=== PATIENT | male | born 1950 | race Hispanic/Latino ===

== ENCOUNTER 2017-05-29 08:29 | Inpatient (IN) | payer MEDICARE, MEDICAID ==
[2017-05-25 11:59] VITALS: BMI 22.2
[2017-05-29 09:03] LABS: BASO # 0.03 K/mm3 (0.0-2.0); BASO % 0.4 % (0.0-3.0); EOS # 0.4 (0.0-0.7); EOS % 5.6 % (1.5-5.0); GRAN # 2.77 (1.4-6.5); GRAN % 39.6 % (50.0-68.0); HEMATOCRIT 37.7 % (42.0-52.0); MEAN CELL VOLUME 96.7 fl (80.0-105.0); MEAN CORPUSCULAR HEMOGLOBIN 33.8 pg (25.0-35.0); MEAN PLATELET VOLUME 9.9 fl (7.0-11.0); MONO # 0.8 (0.1-0.6); MONO % 11.4 % (1.0-6.0); RED CELL DISTRIBUTION WIDTH 14.4 % (11.5-14.5)
[2017-05-29 09:12] LABS: CALCIUM 9.3 mg/dL (8.4-10.5); POTASSIUM 4.4 mmol/L (3.6-5.0)
[2017-05-29 09:17] LABS: INR 1.03 (0.93-1.08)
[2017-05-29] MEDS ORDERED: Nitroglycerin 50mg in D5W 50 MG/250 ML BOTTLE IV ONE (11:13)
[2017-05-29] MEDS ORDERED: Iodixanol 320 MG/ML 100 ML BOTTLE IV ONE (11:13)
[2017-05-29] MEDS ORDERED: Iodixanol 320 MG/ML 200 ML BOTTLE IV ONE ×2 (11:13→12:13)
[2017-05-29] MEDS ORDERED: Lidocaine 2% Inj (20ml) ONE (11:13)
[2017-05-29] MEDS ORDERED: Midazolam 2 MG/2 ML VIAL ONE ×3 (11:43→13:31)
[2017-05-29] MEDS ORDERED: Oxycodone/Acetaminophen 5/325 mg Tab PO PRN (15:06)
[2017-05-29] MEDS ORDERED: Oxycodone/Acetaminophen 5/325 mg Tab ONE (15:59)
[2017-05-29] MEDS ORDERED: Oxycodone/Acetaminophen 5/325 mg Tab PO ONE (16:00)
[2017-05-29] MEDS ORDERED: Morphine 2 mg/ml ISec ONE (16:39)
[2017-05-29] MEDS ORDERED: Morphine 4 mg/ml ISec IVP ONE (16:40)
[2017-05-29 17:15] LABS: BASO # 0.02 K/mm3 (0.0-2.0); BASO % 0.1 % (0.0-3.0); EOS # 0.2 (0.0-0.7); EOS % 1.2 % (1.5-5.0); GRAN # 10.73 (1.4-6.5); GRAN % 70.1 % (50.0-68.0); HEMATOCRIT 34.4 % (42.0-52.0); LYMPH # 3.4 (1.2-3.4); LYMPH % 22.3 % (22.0-35.0); MEAN CELL VOLUME 96.1 fl (80.0-105.0); MEAN CORPUSCULAR HEMOGLOBIN 33.8 pg (25.0-35.0); MEAN CORPUSCULAR HGB CONC 35.2 g/dl (31.0-37.0); MEAN PLATELET VOLUME 10.3 fl (7.0-11.0); MONO % 6.3 % (1.0-6.0); RED CELL DISTRIBUTION WIDTH 14.3 % (11.5-14.5); WHITE BLOOD COUNT 15.3 10^3/ul (4.5-11.0)
[2017-05-29] MEDS ORDERED: Morphine 4 mg/ml ISec IVP STA (17:41)
[2017-05-29 18:31] LABS: ALB/GLOB RATIO 1.4 (1.1-1.8); ALKALINE PHOSPHATASE 47 U/L (38-126); ALT/SGPT 28 U/L (7-56); AST/SGOT 30 U/L (17-59); BILIRUBIN,TOTAL 0.8 mg/dL (0.2-1.3); BLOOD UREA NITROGEN 22 mg/dL (7-21); CALCIUM 8.5 mg/dL (8.4-10.5); CARBON DIOXIDE 20 mmol/L (21-33); CHLORIDE 102 mmol/L (98-107); GFR AFRICAN-AMERICAN > 60; GLUCOSE,RANDOM 100 mg/dL (70-110); POTASSIUM 4.3 mmol/L (3.6-5.0); SODIUM 134 mmol/L (132-148); TOTAL PROTEIN 6.2 g/dL (5.8-8.3)
--- NOTE | 2017-05-29 18:41 | CP.CCUPN ---
CCU Subjective - Physician Review Events Since Last Encounter (Free Text): 05/29/17 18:31 67 y/o M who presented to the ICU after an interventional procedure and stent placement in the femoral artery. R axillary artery entrance was noted to have large hematoma and pressure/ parathesia noted 1 hr after in PACU. In the pacu his movement and parathesia improved. Being brought over to the ICu for further monitoring. CCU Objective - Vital Signs / Intake & Output Vital Signs (Last 4 hours): Vital Signs Temp Pulse Resp BP 05/29/17 17:00 97.7 F 91 H 24 05/29/17 16:30 97.7 F 97 H 24 153/115 H 05/29/17 16:00 97.7 F 97 H 12 05/29/17 15:45 97.7 F 97 H 12 147/77 05/29/17 15:30 97.7 F 85 14 145/80 05/29/17 15:15 97.7 F 84 14 143/82 05/29/17 15:00 97.7 F 80 19 135/107 H - Physical Exam Head: Positive for: Normocephalic Pupils: Positive for: PERRL Extroacular Muscles: Positive for: EOMI Conjunctiva: Positive for: Normal Mouth: Positive for: Moist Mucous Membranes Pharnyx: Positive for: Normal Nose (Internal): Positive for: Normal Inspection Neck: Positive for: Normal Range of Motion Respiratory/Chest: Positive for: Clear to Auscultation Cardiovascular: Positive for: Regular Rate and Rhythm Upper Extremity: Positive for: Swelling, Other (r axilary area, noted with hematoma and pain. ) Lower Extremity: Positive for: Normal Inspection Neurological: Positive for: GCS=15 - Medications Active Medications: Active Medications Generic Name Dose Route Start Last Admin Trade Name Freq PRN Reason Stop Dose Admin Acetaminophen 650 mg 05/29/17 15:07 Tylenol 325mg Tab PO Q4H PRN Pain, Mild (1-3) Aspirin 81 mg 05/30/17 10:00 Ecotrin PO DAILY JESSICA Fenofibrate 145 mg 05/30/17 10:00 Tricor PO DAILY JESSICA Gabapentin 300 mg 05/29/17 22:00 Neurontin PO HS JESSICA Protocol Sodium Chloride 1,000 mls @ 80 mls/hr 05/29/17 15:15 Sodium Chloride 0.45% IV .[id number] JESSICA Losartan Potassium 25 mg 05/30/17 10:00 Cozaar PO DAILY JESSICA Ondansetron HCl 4 mg 05/29/17 15:06 Zofran Inj IVP ONCE PRN Nausea/Vomiting Oxycodone/Acetaminophen 1 tab 05/29/17 15:06 Percocet 5/325 Mg Tab PO 06/01/17 15:07 Q4H PRN Pain, moderate (4-7) - Patient Studies Lab Studies: Lab Studies 05/29/17 05/29/17 05/29/17 Range/Units 17:00 17:00 17:00 WBC 15.3 H D (4.5-11.0) 10^3/ul RBC 3.58 (3.5-6.1) 10^6/uL Hgb 12.1 L (14.0-18.0) g/dL Hct 34.4 L (42.0-52.0) % MCV 96.1 (80.0-105.0) fl MCH 33.8 (25.0-35.0) pg MCHC 35.2 (31.0-37.0) g/dl RDW 14.3 (11.5-14.5) % Plt Count 219 (120.0-450.0) 10^3/uL MPV 10.3 (7.0-11.0) fl Gran % 70.1 H (50.0-68.0) % Lymph % (Auto) 22.3 (22.0-35.0) % Frederick % (Auto) 6.3 H (1.0-6.0) % Eos % (Auto) 1.2 L (1.5-5.0) % Baso % (Auto) 0.1 (0.0-3.0) % Gran # 10.73 H (1.4-6.5) Lymph # 3.4 (1.2-3.4) Frederick # 1.0 H (0.1-0.6) Eos # 0.2 (0.0-0.7) Baso # 0.02 (0.0-2.0) K/mm3 PT (9.9-11.8) Seconds INR (0.93-1.08) APTT 77.7 H* (23.7-30.8) Seconds Sodium (132-148) mmol/L Potassium (3.6-5.0) mmol/L Chloride (98-107) mmol/L Carbon Dioxide (21-33) mmol/L Anion Gap (10-20) BUN (7-21) mg/dL Creatinine (0.8-1.5) mg/dL Est GFR ( Amer) Est GFR (Non-Af Amer) Random Glucose (70-110) mg/dL Calcium (8.4-10.5) mg/dL Blood Type AB NEGATIVE Antibody Screen Negative BBK History Checked Patient has bt 05/29/17 05/29/17 05/29/17 Range/Units 08:45 08:45 08:45 WBC 7.0 (4.5-11.0) 10^3/ul RBC 3.90 (3.5-6.1) 10^6/uL Hgb 13.2 L (14.0-18.0) g/dL Hct 37.7 L (42.0-52.0) % MCV 96.7 (80.0-105.0) fl MCH 33.8 (25.0-35.0) pg MCHC 35.0 (31.0-37.0) g/dl RDW 14.4 (11.5-14.5) % Plt Count 209 (120.0-450.0) 10^3/uL MPV 9.9 (7.0-11.0) fl Gran % 39.6 L (50.0-68.0) % Lymph % (Auto) 43.0 H (22.0-35.0) % Frederick % (Auto) 11.4 H (1.0-6.0) % Eos % (Auto) 5.6 H (1.5-5.0) % Baso % (Auto) 0.4 (0.0-3.0) % Gran # 2.77 (1.4-6.5) Lymph # 3.0 (1.2-3.4) Frederick # 0.8 H (0.1-0.6) Eos # 0.4 (0.0-0.7) Baso # 0.03 (0.0-2.0) K/mm3 PT 11.1 (9.9-11.8) Seconds INR 1.03 (0.93-1.08) APTT 28.0 (23.7-30.8) Seconds Sodium 136 (132-148) mmol/L Potassium 4.4 (3.6-5.0) mmol/L Chloride 101 (98-107) mmol/L Carbon Dioxide 25 (21-33) mmol/L Anion Gap 14 (10-20) BUN 26 H (7-21) mg/dL Creatinine 1.5 (0.8-1.5) mg/dL Est GFR ( Amer) 57 Est GFR (Non-Af Amer) 47 Random Glucose 84 (70-110) mg/dL Calcium 9.3 (8.4-10.5) mg/dL Blood Type Antibody Screen BBK History Checked Laboratory Results - last 24 hr 05/29/17 05/29/17 05/29/17 08:45 08:45 08:45 WBC 7.0 RBC 3.90 Hgb 13.2 L Hct 37.7 L MCV 96.7 MCH 33.8 MCHC 35.0 RDW 14.4 Plt Count 209 MPV 9.9 Gran % 39.6 L Lymph % (Auto) 43.0 H Frederick % (Auto) 11.4 H Eos % (Auto) 5.6 H Baso % (Auto) 0.4 Gran # 2.77 Lymph # 3.0 Frederick # 0.8 H Eos # 0.4 Baso # 0.03 PT 11.1 INR 1.03 APTT 28.0 Sodium 136 Potassium 4.4 Chloride 101 Carbon Dioxide 25 Anion Gap 14 BUN 26 H Creatinine 1.5 Est GFR ( Amer) 57 Est GFR (Non-Af Amer) 47 Random Glucose 84 Calcium 9.3 Blood Type Antibody Screen BBK History Checked 05/29/17 05/29/17 05/29/17 17:00 17:00 17:00 WBC 15.3 H D RBC 3.58 Hgb 12.1 L Hct 34.4 L MCV 96.1 MCH 33.8 MCHC 35.2 RDW 14.3 Plt Count 219 MPV 10.3 Gran % 70.1 H Lymph % (Auto) 22.3 Frederick % (Auto) 6.3 H Eos % (Auto) 1.2 L Baso % (Auto) 0.1 Gran # 10.73 H Lymph # 3.4 Frederick # 1.0 H Eos # 0.2 Baso # 0.02 PT INR APTT 77.7 H* Sodium Potassium Chloride Carbon Dioxide Anion Gap BUN Creatinine Est GFR ( Amer) Est GFR (Non-Af Amer) Random Glucose Calcium Blood Type AB NEGATIVE Antibody Screen Negative BBK History Checked Patient has bt Review of Systems - EENT Eyes: As Per HPI Ears: As Per HPI - Cardiovascular Cardiovascular: UNREMARKABLE - Respiratory Respiratory: UNREMARKABLE - Gastrointestinal Gastrointestinal: UNREMARKABLE - Genitourinary Genitourinary: UNREMARKABLE - Musculoskeletal Musculoskeletal: Myalgias, Stiffness, Tingling - Neurological Neurological: UNREMARKABLE - Psychiatric Psychiatric: UNREMARKABLE Critical Care Progress Note - Ventilator Checklist Daily Assessment of Readiness to Wean: Yes Daily Spontaneous Breathing Trial: Yes PUD Prophalyxis: Yes DVT Prophylaxis: Yes Oral Care with Chlorhexidine Gluconate {CHG}: Yes - Nutrition Nutrition: Nutrition Category Date Time Status Heart Healthy Diet [DIET] Diets 05/29/17 Dinner Ordered Assessment/Plan - Assessment and Plan (Free Text) Assessment: 67 y/o M with PVD , outpatient for angioplasty for illiac stent with SFA opening. R axilary approach . Post op found to have large hematoma with brachial plexus impingement. Bleeding stopped. Coags and cbc to be checked. Site check q 1hr. Currently noted to have adventist on feeling and movement. Keep HGB> 7 , INR< 2 , Platelets> 20 K Q6hrs labs. Monitor overnight. L leg intact without numbness or weakness. Pulses intact. cc time 45 min
[2017-05-29] MEDS ORDERED: Morphine 2 mg/ml ISec IVP PRN (19:36)
[2017-05-29] MEDS: Sodium Chloride 0.45% 1,000 ML IV SCH (19:47)
[2017-05-29] MEDS: Morphine 4 mg/ml ISec IVP PRN ×2 (19:55→20:34)
--- NOTE | 2017-05-29 20:18 | VASCULAR ---
PROCEDURE: 1. Abdominal aortogram and bilateral lower extremity runoff with left selective views. 2. Left SFA angioplasty and stent placement with attempted atherectomy. HISTORY: Severe peripheral vascular disease. These kissing iliac stents. Previous left SFA recanalization. Foot ischemia with rest pain. Previous left toe amputations. PHYSICIAN(S): Steve Hernandez M.D. TECHNIQUE: The relative risks and indications of the procedure were explained to the patient and his daughter and consent obtained. The patient was hydrated prior to the procedure and the appropriate labs drawn. The patient was placed supine on the arteriogram table and the right axilla prepped and draped in the usual sterile fashion. Conscious sedation and monitoring were provided throughout the procedure by a nurse. Under direct ultrasound guidance, the right axillary artery was punctured with a micropuncture set. a 5 Lithuanian sheath was placed in the right axilla. Through the sheath and over a guidewire, a 5 Lithuanian flush catheter was placed in the abdominal aorta at the level of the renal arteries and a PA DSA abdominal aortogram performed. The catheter was advanced to the aortic bifurcation and bilateral oblique DSA pelvic arteriograms performed. Overlapping bilateral lower extremity DSA arteriograms were obtained from the inguinal ligaments to the ankles. A 5 Lithuanian catheter and angled Glidewire were negotiated into the iliac kissing stents. The catheter was in 7 Lithuanian 70 cm sheath was placed in the left iliac artery. The occluded left SFA was crossed with a 5 Lithuanian catheter and angled Glidewire. Exchange is made for a 0.014 support wire. The silver Hawk catheter would not reach the occluded left SFA. A jet stream catheter was advanced the origin of the left SFA but would not advance further. Subsequently the occluded left SFA and stents were dilated with a 6 mm sheath. 7 mm x 4 cm stent was placed the origin of the left SFA. 6 mm x 8 cm stent was placed in the mid left SFA. A 6 mm by 150 mm drug-eluting balloon was used in the distal left SFA. Completion angiograms were obtained. The sheath was removed and hemostasis obtained at the right axillary puncture site with a Mynx device. FINDINGS: There are single renal arteries bilaterally which are widely patent and normal in appearance. The nephrograms are symmetric in appearance. The infrarenal abdominal aorta is patent with widely patent kissing self expanding stents placed at the aortic bifurcation. Both stents are widely patent. The left internal iliac artery is occluded. The right internal iliac artery is patent. The external iliac arteries are patent.. Right lower extremity: The right common femoral artery is patent. The right profunda femoral artery is patent. There is a 10-12 cm occlusion of the proximal right SFA. The distal right SFA is reconstituted and patent. The right popliteal artery is patent and continuous. The right trifurcation is intact. There is 3 vessel runoff on the right with small calcified vessels. Left lower extremity: Left common femoral artery is patent. The left profunda femoral artery is hypertrophied. The left superficial femoral artery is occluded at its origin. 2 stents are seen in the mid left SFA. There is reconstitution of the terminal left SFA. The left popliteal artery is continuous. There is 2 vessel runoff via the left posterior tibial and peroneal arteries. The left anterior tibial artery is severely diseased. IMPRESSION: 1.Successful recanalization of the long segment left SFA occlusion and stents as described above. 2. Patent kissing common iliac artery stents. 3. 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
[2017-05-29] MEDS: HYDROmorphone 2 mg/ml ISec IVP PRN (21:00)
[2017-05-29] MEDS ORDERED: Lidocaine 2% Inj (20ml) IJ STA (22:30)
--- NOTE | 2017-05-29 23:13 | CP.PCM.PN ---
Subjective - Date & Time of Evaluation Date of Evaluation: 05/29/17 Time of Evaluation: 23:06 - Subjective Subjective: Patient's right arm circumference was measured at 15.5" at the start of shift. In ~4 hours, arm circumference increased to 17.5" An ice pack was placed under patient's right axilla RUE compartment pressure was tested using [place] needle 2% lidocaine was injected Pressure was measured: 15-20mmHg Patient tolerated procedure with no complications Will continue to monitor patient closely Discussed with attending Dr. Lakisha Troy [email or web address] Objective - Vital Signs/Intake and Output Vital Signs (last 24 hours): Temp Pulse Resp BP Pulse Ox 99.4 F 98 H 17 125/74 98 05/29/17 21:28 05/29/17 21:28 05/29/17 21:28 05/29/17 21:28 05/29/17 21:00 - Medications Medications: Current Medications Acetaminophen (Tylenol 325mg Tab) 650 mg PO Q4H PRN PRN Reason: Pain, Mild (1-3) Aspirin (Ecotrin) 81 mg PO DAILY JESSICA Fenofibrate (Tricor) 145 mg PO DAILY JESSICA Gabapentin (Neurontin) 300 mg PO HS JESSICA PRN Reason: Protocol Last Admin: 05/29/17 21:51 Dose: 300 mg Hydromorphone HCl (Dilaudid) 2 mg IVP Q6H PRN PRN Reason: Pain, severe (8-10) Last Admin: 05/29/17 21:00 Dose: 2 mg Sodium Chloride (Sodium Chloride 0.45%) 1,000 mls @ 80 mls/hr IV .[id number] [facility] Last Admin: 05/29/17 19:47 Dose: 80 mls/hr Losartan Potassium (Cozaar) 25 mg PO DAILY [facility] Morphine Sulfate (Morphine) 2 mg IVP Q3H PRN PRN Reason: Pain, severe (8-10) Last Admin: 05/29/17 20:34 Dose: 2 mg Ondansetron HCl (Zofran Inj) 4 mg IVP ONCE PRN PRN Reason: Nausea/Vomiting Oxycodone/Acetaminophen (Percocet 5/325 Mg Tab) 1 tab PO Q4H PRN PRN Reason: Pain, moderate (4-7) Stop: 06/01/17 15:07 - Labs Labs: 05/29/17 17:00 05/29/17 18:14 PT 11.1 Seconds (9.9-11.8) 05/29/17 08:45 INR 1.03 (0.93-1.08) 05/29/17 08:45 APTT 77.7 Seconds (23.7-30.8) H* 05/29/17 17:00
[2017-05-29 23:47] LABS: BASO # 0.01 K/mm3 (0.0-2.0); BASO % 0.1 % (0.0-3.0); GRAN # 14.47 (1.4-6.5); GRAN % 89.2 % (50.0-68.0); HEMATOCRIT 35.5 % (42.0-52.0); LYMPH % 6.4 % (22.0-35.0); MEAN CELL VOLUME 97.5 fl (80.0-105.0); MEAN CORPUSCULAR HEMOGLOBIN 34.3 pg (25.0-35.0); MEAN CORPUSCULAR HGB CONC 35.2 g/dl (31.0-37.0); MEAN PLATELET VOLUME 9.9 fl (7.0-11.0); MONO # 0.7 (0.1-0.6); MONO % 4.3 % (1.0-6.0); RED CELL DISTRIBUTION WIDTH 14.4 % (11.5-14.5); WHITE BLOOD COUNT 16.2 10^3/ul (4.5-11.0)
[2017-05-29 23:53] LABS: INR 1.07 (0.93-1.08); PARTIAL THROMBOPLASTIN TIME 26.6 Seconds (23.7-30.8)
[2017-05-30] MEDS: HYDROmorphone 2 mg/ml ISec IVP PRN ×3 (03:15→20:54)
[2017-05-30 03:23] LABS: INR 1.05 (0.93-1.08); PARTIAL THROMBOPLASTIN TIME 26.4 Seconds (23.7-30.8)
[2017-05-30 07:17] LABS: INR 1.03 (0.93-1.08); PARTIAL THROMBOPLASTIN TIME 25.8 Seconds (23.7-30.8)
[2017-05-30 07:35] LABS: ALB/GLOB RATIO 1.4 (1.1-1.8); BILIRUBIN,TOTAL 0.6 mg/dL (0.2-1.3); CALCIUM 8.1 mg/dL (8.4-10.5); MAGNESIUM 1.6 mg/dL (1.7-2.2); PHOSPHOROUS 6.3 mg/dL (2.5-4.5); POTASSIUM 4.8 mmol/L (3.6-5.0)
[2017-05-30 07:50] LABS: TROPONIN I 0.15 ng/mL
[2017-05-30] MEDS: Morphine 4 mg/ml ISec IVP PRN ×2 (07:52→14:07)
[2017-05-30] MEDS ORDERED: Sodium Chloride 0.9% 1,000 ML IV STA ×2 (08:10→10:33)
[2017-05-30] MEDS: Sodium Chloride 0.45% 1,000 ML IV SCH (08:26)
[2017-05-30 10:43] LABS: INR 1.07 (0.93-1.08); PARTIAL THROMBOPLASTIN TIME 26.1 Seconds (23.7-30.8)
[2017-05-30 10:44] LABS: ALB/GLOB RATIO 1.4 (1.1-1.8); BILIRUBIN,TOTAL 0.5 mg/dL (0.2-1.3); CALCIUM 7.6 mg/dL (8.4-10.5); POTASSIUM 4.9 mmol/L (3.6-5.0); TOTAL PROTEIN 5.7 g/dL (5.8-8.3)
--- NOTE | 2017-05-30 14:58 | CP.CCUPN ---
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 Baso % (Auto) 0.1 Gran # 14.47 H Lymph # 1.0 L Grayson # 0.7 H Eos # 0.0 Baso # 0.01 PT INR APTT Sodium 134 Potassium 4.3 Chloride 102 Carbon Dioxide 20 L Anion Gap 16 BUN 22 H Creatinine 1.3 Est GFR ( Amer) > 60 Est GFR (Non-Af Amer) 55 Random Glucose 100 Calcium 8.5 Phosphorus Magnesium Total Bilirubin 0.8 AST 30 ALT 28 Alkaline Phosphatase 47 Troponin I 0.03 Total Protein 6.2 Albumin 3.6 Globulin 2.6 Albumin/Globulin Ratio 1.4 Blood Type Antibody Screen BBK History Checked 05/29/17 05/30/17 05/30/17 23:30 02:45 06:45 WBC RBC Hgb Hct MCV MCH MCHC RDW Plt Count MPV Gran % Lymph % (Auto) Grayson % (Auto) Eos % (Auto) Baso % (Auto) Gran # Lymph # Grayson # Eos # Baso # PT 11.6 11.3 INR 1.07 1.05 APTT 26.6 26.4 Sodium 134 Potassium 4.8 Chloride 99 Carbon Dioxide 20 L Anion Gap 20 BUN 31 H Creatinine 2.6 H Est GFR ( Amer) 30 Est GFR (Non-Af Amer) 25 Random Glucose 117 H Calcium 8.1 L Phosphorus 6.3 H Magnesium 1.6 L Total Bilirubin 0.6 AST 36 ALT 31 Alkaline Phosphatase 42 Troponin I 0.15 H* D Total Protein 6.0 Albumin 3.5 Globulin 2.5 Albumin/Globulin Ratio 1.4 Blood Type Antibody Screen BBK History Checked 05/30/17 05/30/17 05/30/17 06:45 10:25 10:25 WBC RBC Hgb Hct MCV MCH MCHC RDW Plt Count MPV Gran % Lymph % (Auto) Grayson % (Auto) Eos % (Auto) Baso % (Auto) Gran # Lymph # Grayson # Eos # Baso # PT 11.1 11.6 INR 1.03 1.07 APTT 25.8 26.1 Sodium 132 Potassium 4.9 Chloride 100 Carbon Dioxide 18 L Anion Gap 19 BUN 33 H Creatinine 2.7 H Est GFR ( Amer) 29 Est GFR (Non-Af Amer) 24 Random Glucose 120 H Calcium 7.6 L Phosphorus Magnesium Total Bilirubin 0.5 AST 28 ALT 29 Alkaline Phosphatase 38 Troponin I Total Protein 5.7 L Albumin 3.3 Globulin 2.4 Albumin/Globulin Ratio 1.4 Blood Type Antibody Screen BBK History Checked 05/30/17 05/30/17 15:27 15:27 WBC RBC Hgb Hct MCV MCH MCHC RDW Plt Count MPV Gran % Lymph % (Auto) Grayson % (Auto) Eos % (Auto) Baso % (Auto) Gran # Lymph # Grayson # Eos # Baso # PT 11.4 INR 1.06 APTT 27.3 Sodium 132 Potassium 4.8 Chloride 100 Carbon Dioxide 22 Anion Gap 15 BUN 39 H Creatinine 3.2 H Est GFR ( Amer) 24 Est GFR (Non-Af Amer) 20 Random Glucose 126 H Calcium 7.3 L Phosphorus Magnesium Total Bilirubin 0.4 AST 29 ALT 24 Alkaline Phosphatase 36 L Troponin I 0.29 H* D Total Protein 5.3 L Albumin 3.0 Globulin 2.2 Albumin/Globulin Ratio 1.4 Blood Type Antibody Screen BBK History Checked Critical Care Progress Note - Nutrition Nutrition: Nutrition Category Date Time Status Heart Healthy Diet [DIET] Diets 05/29/17 Dinner Ordered Attending/Attestation - Attestation I have personally seen and examined this patient.: Yes I have fully participated in the care of the patient.: Yes I have reviewed all pertinent clinical information: Yes Notes (Text): 05/30/17 16:37 67 y/o M monitored overnight due to concern for worsening R arm swelling/ hematoma expansion. Numbness and motor loss improved and patient is doing well. No complaints. HGB stable. Edema increased w/ increasing arm size. COncern for compartment syndrome is things worsen. Increased CR, contrast given post cath 24 hrs prior. Hydration started w/ Normal saline. PT /ot cc time 45 min
[2017-05-30] MEDS ORDERED: Albuterol-Ipratrop 3 mg / 0.5 (3 ml) UD IH STA (15:08)
[2017-05-30 15:39] LABS: ALB/GLOB RATIO 1.4 (1.1-1.8); BILIRUBIN,TOTAL 0.4 mg/dL (0.2-1.3); CALCIUM 7.3 mg/dL (8.4-10.5); POTASSIUM 4.8 mmol/L (3.6-5.0); TOTAL PROTEIN 5.3 g/dL (5.8-8.3)
[2017-05-30 15:52] LABS: INR 1.06 (0.93-1.08); PARTIAL THROMBOPLASTIN TIME 27.3 Seconds (23.7-30.8)
[2017-05-30 15:53] LABS: TROPONIN I 0.29 ng/mL
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
[2017-05-30] MEDS ORDERED: Magnesium Sulfate 2 GM in Sodium Chloride 0.9% 100 ML IVPB ONE (17:21)
[2017-05-30 19:44] LABS: ALB/GLOB RATIO 1.5 (1.1-1.8); BILIRUBIN,TOTAL 0.4 mg/dL (0.2-1.3); CALCIUM 7.8 mg/dL (8.4-10.5); POTASSIUM 4.8 mmol/L (3.6-5.0); TOTAL PROTEIN 5.5 g/dL (5.8-8.3)
[2017-05-30 19:46] LABS: INR 1.04 (0.93-1.08); PARTIAL THROMBOPLASTIN TIME 26.4 Seconds (23.7-30.8)
[2017-05-30 22:52] LABS: ALB/GLOB RATIO 1.4 (1.1-1.8); BILIRUBIN,TOTAL 0.4 mg/dL (0.2-1.3); CALCIUM 7.6 mg/dL (8.4-10.5); PARTIAL THROMBOPLASTIN TIME 26.5 Seconds (23.7-30.8); POTASSIUM 4.7 mmol/L (3.6-5.0); TOTAL PROTEIN 5.2 g/dL (5.8-8.3)
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
[2017-05-31 01:49] LABS: ALB/GLOB RATIO 1.4 (1.1-1.8); BILIRUBIN,TOTAL 0.4 mg/dL (0.2-1.3); CALCIUM 7.8 mg/dL (8.4-10.5); TOTAL PROTEIN 5.5 g/dL (5.8-8.3)
[2017-05-31 07:30] LABS: ALB/GLOB RATIO 1.3 (1.1-1.8); BILIRUBIN,TOTAL 0.4 mg/dL (0.2-1.3); CALCIUM 7.7 mg/dL (8.4-10.5); POTASSIUM 4.7 mmol/L (3.6-5.0); TOTAL PROTEIN 5.5 g/dL (5.8-8.3)
[2017-05-31 09:16] LABS: ALB/GLOB RATIO 1.3 (1.1-1.8); BILIRUBIN,TOTAL 0.4 mg/dL (0.2-1.3); CALCIUM 7.6 mg/dL (8.4-10.5); POTASSIUM 4.7 mmol/L (3.6-5.0); TOTAL PROTEIN 5.3 g/dL (5.8-8.3)
[2017-05-31] MEDS: Azithromycin 500MG/NS 250ml 500 MG/250 ML BAG IVPB SCH (11:53)
[2017-05-31] MEDS: Sodium Chloride 0.9% 1,000 ML IV SCH ×2 (11:54→22:32)
[2017-05-31 13:16] LABS: TROPONIN I 0.15 ng/mL
[2017-05-31] MEDS: cefTRIAXone 1 gm 1 GM/100 ML BAG IVPB SCH (14:01)
[2017-05-31 14:32] LABS: URINE BILIRUBIN NEGATIVE (NEGATIVE); URINE BLOOD LARGE (NEGATIVE); URINE GLUCOSE (UA) NEGATIVE (NEGATIVE); URINE KETONE NEGATIVE (NEGATIVE); URINE LEUKOCYTE ESTERASE TRACE Leu/uL (NEGATIVE); URINE PROTEIN NEGATIVE mg/dL (<30 mg/dL); URINE UROBILINOGEN 0.2 E.U./dL (<1 E.U./dL)
[2017-05-31 14:33] LABS: URINE APPEARANCE CLEAR (CLEAR); URINE COLOR YELLOW (YELLOW)
[2017-05-31 14:40] LABS: URINE RBC 25 - 30 /hpf (0-2); URINE WBC 0 - 2 /hpf (0-6)
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
[2017-05-31 14:41] LABS: URINE RED BLOOD CELL CAST 0 - 2 /hpf
--- NOTE | 2017-05-31 15:26 | RAD ---
HISTORY: persistent nausea, multiple emesis, no flatus/BM COMPARISON: No prior. FINDINGS: BOWEL: Unremarkable bowel gas pattern. No evidence of bowel obstruction. No masses or abnormal calcifications. There are bilateral iliac vascular stents. There is a left femoral vascular stent. BONES: Normal. OTHER FINDINGS: None. IMPRESSION: No evidence of bowel obstruction.
[2017-05-31 15:45] LABS: GRAN # 13.52 (1.4-6.5); GRAN % 84.7 % (50.0-68.0); HEMATOCRIT 26.8 % (42.0-52.0); LYMPH # 1.2 (1.2-3.4); LYMPH % 7.5 % (22.0-35.0); MEAN CELL VOLUME 96.4 fl (80.0-105.0); MEAN CORPUSCULAR HEMOGLOBIN 33.5 pg (25.0-35.0); MEAN CORPUSCULAR HGB CONC 34.7 g/dl (31.0-37.0); MEAN PLATELET VOLUME 10.1 fl (7.0-11.0); MONO # 1.2 (0.1-0.6); MONO % 7.8 % (1.0-6.0); RED CELL DISTRIBUTION WIDTH 14.7 % (11.5-14.5)
--- NOTE | 2017-05-31 17:34 | CARD ---
APPROVED REPORT EKG Measurement Heart [id number] <Conclusion> Sinus tachycardia with occasional and consecutive premature ventricular complexes and fusion complexes Low voltage QRS Septal infarct, age undetermined Inferior infarct, age undetermined Abnormal ECG
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
[2017-06-01 06:39] LABS: BASO # 0.01 K/mm3 (0.0-2.0); BASO % 0.1 % (0.0-3.0); EOS % 0.2 % (1.5-5.0); GRAN # 7.34 (1.4-6.5); GRAN % 75.9 % (50.0-68.0); HEMATOCRIT 24.8 % (42.0-52.0); LYMPH # 1.3 (1.2-3.4); LYMPH % 13.7 % (22.0-35.0); MEAN CELL VOLUME 97.3 fl (80.0-105.0); MEAN CORPUSCULAR HEMOGLOBIN 33.7 pg (25.0-35.0); MEAN CORPUSCULAR HGB CONC 34.7 g/dl (31.0-37.0); MONO % 10.1 % (1.0-6.0); RED CELL DISTRIBUTION WIDTH 15.2 % (11.5-14.5); WHITE BLOOD COUNT 9.7 10^3/ul (4.5-11.0)
[2017-06-01 07:25] LABS: ALB/GLOB RATIO 1.1 (1.1-1.8); BILIRUBIN,TOTAL 0.4 mg/dL (0.2-1.3); CALCIUM 7.6 mg/dL (8.4-10.5); MAGNESIUM 2.5 mg/dL (1.7-2.2); PHOSPHOROUS 2.7 mg/dL (2.5-4.5); POTASSIUM 4.4 mmol/L (3.6-5.0); TOTAL PROTEIN 5.1 g/dL (5.8-8.3)
[2017-06-01] MEDS: cefTRIAXone 1 gm 1 GM/100 ML BAG IVPB SCH (09:49)
[2017-06-01] MEDS: Azithromycin 500MG/NS 250ml 500 MG/250 ML BAG IVPB SCH (09:49)
[2017-06-01] MEDS: Sodium Chloride 0.9% 1,000 ML IV SCH (09:50)
[2017-06-01] MEDS ORDERED: Sodium Chloride 0.9% 1,000 ML IV SCH (10:50)
--- NOTE | 2017-06-01 17:17 | PN ---
DATE: 06/01/2017 SUBJECTIVE: The patient is seen in the ICU. He is lying in bed. He is awake, he is alert. He is complaining of some nausea. He is complaining of pain in his right upper arm. He denies any pain in his left lower extremity. He denies any chest tightness. Denies any palpitations. PHYSICAL EXAMINATION GENERAL: Elderly male lying in bed, in mild respiratory distress. VITAL SIGNS: Blood pressure 98/50, heart rate 95, respiratory rate 18, temperature 98.3. HEENT: Normocephalic, atraumatic. NECK: Supple, no JVD. LUNGS: Bilateral equal entry, distant breath sounds, bilateral rhonchi, no rales. CARDIAC: S1 and S2, regular rate and rhythm, no murmur, no rub. ABDOMEN: Obese, distended, soft, nontender, bowel sounds present. EXTREMITIES: Large hematoma in right upper arm, some oozing of blood, ecchymosis. Lower extremities: Trace lower extremity edema. No clubbing, no cyanosis. INTAKE AND OUTPUT: 2450/1750. LABORATORY DATA: WBC 9.7, hemoglobin 8.6, hematocrit 25, platelets 180. Sodium 139, potassium 4.4, chloride 109, CO2 of 22, BUN 44, creatinine 2.1, glucose 91, calcium 7.6, phosphorus 2.7, magnesium 2.5, albumin 2.7, corrected calcium is 8.5, globulin 2.4. Urine eosinophils negative. Urinalysis: Large blood, leukocyte esterase trace, specific gravity 1.020, complements normal. Cultures negative. CURRENT MEDICATIONS: Dilaudid, Ecotrin, morphine, Rocephin 1 g daily, TriCor Tylenol, Zithromax, Zofran. ASSESSMENT: 1. Acute kidney injury superimposed on chronic kidney disease stage II. 2. Contrast induced acute tubular necrosis. 3. Severe peripheral vascular disease. 4. Right arm hematoma. 5. Anemia secondary to blood loss. 6. Hypertension. 7. Chronic obstructive pulmonary disease. 8. Long-term smoking. PLAN: 1. Acute kidney injury is resolving. 2. Discontinue IV fluids after this bag of fluids. 3. Monitor H and H closely. 4. May need blood transfusion. 5. Continue respiratory treatments. 6. Avoid nephrotoxins. 7. Avoid hypotension. 8. Continue empiric antibiotics. Case is discussed with ICU resident and ICU attending. Case is discussed with the patient at bedside. Case is discussed with primary nurse. More than 35 minutes was spent in the care of this critically ill patient. Tamiko Chamberlain MD
--- NOTE | 2017-06-01 18:31 | PN ---
DATE: SUBJECTIVE: The patient was transferred to telemetry. He denies chest pain. He is still experiencing right arm numbness. He denies any leg pain. PHYSICAL EXAMINATION: VITAL SIGNS: Blood pressure 123/67, heart rate 95, temperature 98.5. HEENT: Pale conjunctivae. CHEST: Clear. HEART: S1 and S2 regular. ABDOMEN: Soft. LABORATORY DATA: Hemoglobin and hematocrit 8.6 and 24.8, white count 9.7, platelet count 180,000. Today's BUN and creatinine have significantly improved to 44 and 2.1 respectively. Abdomen x-ray, no evidence of bowel obstruction. ASSESSMENT: 1. Borderline troponin elevation. 2. Improved renal insufficiency. 3. Peripheral vascular disease status post recently percutaneous transluminal angioplasty and stent to the left superficial femoral artery via right axillary approach. 4. Recent right axillary hematoma. RECOMMENDATIONS: Continue aspirin 81 mg once a day, IV Rocephin at 1 g daily, TriCor at 145 mg once a day, Zithromax 500 mg intravenously daily. Echocardiogram study is still pending and I recommended ventilation perfusion scan. The patient is not suitable candidate for invasive cardiac workup. Armando Burgos MD
[2017-06-02 07:27] LABS: BASO # 0.01 K/mm3 (0.0-2.0); BASO % 0.2 % (0.0-3.0); EOS # 0.1 (0.0-0.7); EOS % 0.8 % (1.5-5.0); GRAN # 3.82 (1.4-6.5); GRAN % 63.3 % (50.0-68.0); LYMPH # 1.4 (1.2-3.4); LYMPH % 22.9 % (22.0-35.0); MEAN CELL VOLUME 97.4 fl (80.0-105.0); MEAN CORPUSCULAR HEMOGLOBIN 33.6 pg (25.0-35.0); MEAN CORPUSCULAR HGB CONC 34.5 g/dl (31.0-37.0); MEAN PLATELET VOLUME 10.2 fl (7.0-11.0); MONO # 0.8 (0.1-0.6); MONO % 12.8 % (1.0-6.0); RED CELL DISTRIBUTION WIDTH 15.6 % (11.5-14.5)
[2017-06-02 07:43] LABS: ALB/GLOB RATIO 1.2 (1.1-1.8); ALKALINE PHOSPHATASE 38 U/L (38-126); ALT/SGPT 43 U/L (7-56); AST/SGOT 40 U/L (17-59); BILIRUBIN,TOTAL 0.6 mg/dL (0.2-1.3); BLOOD UREA NITROGEN 29 mg/dL (7-21); CARBON DIOXIDE 24 mmol/L (21-33); CHLORIDE 114 mmol/L (95-110); GFR AFRICAN-AMERICAN > 60; GLUCOSE,RANDOM 96 mg/dL (70-110); MAGNESIUM 2.5 mg/dL (1.7-2.2); PHOSPHOROUS 1.8 mg/dL (2.5-4.5); SODIUM 144 mmol/L (132-148); TOTAL PROTEIN 4.8 g/dL (5.8-8.3)
[2017-06-02 08:06] LABS: HEMATOCRIT 22.3 % (42.0-52.0)
[2017-06-02 08:49] LABS: HEMATOCRIT 23.4 % (42.0-52.0)
[2017-06-02] MEDS: cefTRIAXone 1 gm 1 GM/100 ML BAG IVPB SCH (09:03)
[2017-06-02] MEDS: Azithromycin 500MG/NS 250ml 500 MG/250 ML BAG IVPB SCH (10:10)
[2017-06-03 06:55] LABS: BASO # 0.02 K/mm3 (0.0-2.0); BASO % 0.3 % (0.0-3.0); EOS # 0.1 (0.0-0.7); EOS % 1.2 % (1.5-5.0); GRAN # 4.03 (1.4-6.5); GRAN % 58.6 % (50.0-68.0); LYMPH # 1.9 (1.2-3.4); LYMPH % 27.5 % (22.0-35.0); MEAN CELL VOLUME 98.3 fl (80.0-105.0); MEAN CORPUSCULAR HEMOGLOBIN 33.6 pg (25.0-35.0); MEAN CORPUSCULAR HGB CONC 34.2 g/dl (31.0-37.0); MEAN PLATELET VOLUME 9.8 fl (7.0-11.0); MONO # 0.9 (0.1-0.6); MONO % 12.4 % (1.0-6.0); RED CELL DISTRIBUTION WIDTH 15.7 % (11.5-14.5); WHITE BLOOD COUNT 6.9 10^3/ul (4.5-11.0)
[2017-06-03 07:18] LABS: ALB/GLOB RATIO 1.2 (1.1-1.8); ALKALINE PHOSPHATASE 46 U/L (38-126); ALT/SGPT 45 U/L (7-56); AST/SGOT 43 U/L (17-59); BILIRUBIN,TOTAL 0.6 mg/dL (0.2-1.3); BLOOD UREA NITROGEN 25 mg/dL (7-21); CALCIUM 8.3 mg/dL (8.4-10.5); CARBON DIOXIDE 28 mmol/L (21-33); CHLORIDE 112 mmol/L (98-107); GFR AFRICAN-AMERICAN > 60; GLUCOSE,RANDOM 105 mg/dL (70-110); MAGNESIUM 2.4 mg/dL (1.7-2.2); PHOSPHOROUS 1.6 mg/dL (2.5-4.5); POTASSIUM 4.1 mmol/L (3.6-5.0); SODIUM 146 mmol/L (132-148); TOTAL PROTEIN 5.2 g/dL (5.8-8.3)
[2017-06-03 07:28] LABS: HEMATOCRIT 23.7 % (42.0-52.0)
[2017-06-03] MEDS: cefTRIAXone 1 gm 1 GM/100 ML BAG IVPB SCH (10:02)
[2017-06-03] MEDS: Azithromycin 500MG/NS 250ml 500 MG/250 ML BAG IVPB SCH (11:06)
[2017-06-03 13:18] LABS: IRON 88 ug/dL (45-180)
--- NOTE | 2017-06-03 14:50 | PN ---
DATE: 06/02/2017 SUBJECTIVE: The patient is seen lying in bed. He is awake, he is alert, he is comfortable. He still has some cough. Pain in the right arm has much reduced. Pain in the left leg is better. PHYSICAL EXAMINATION: GENERAL EXAMINATION: Elderly male, lying in bed. VITAL SIGNS: Blood pressure 149/71, heart rate 88, respiratory rate 18 to 20 and temperature 98.2. HEENT: Normocephalic, atraumatic, positive pallor. NECK: Supple. No JVD. LUNGS: Bilateral equal air entry. No rales. CARDIAC: S1 and S2, regular rate and rhythm. No murmur. No rub. ABDOMEN: Obese, distended, soft, nontender, bowel sounds present. EXTREMITIES: Large hematoma in right upper extremity, slightly reduced in size. No lower extremity edema. INTAKE AND OUTPUT: 300/1300. LABORATORY DATA: WBC 6.0, hemoglobin 7.7, hematocrit 22 and platelets 194. Sodium 144, potassium 4.0, chloride 105, CO2 of 24, BUN 29, creatinine 1.2, glucose 96, calcium 8.0, phosphorus 1.8 and magnesium 2.5. Albumin 2.6. MEDICATIONS: Aspirin, Rocephin, TriCor, Tylenol, Zithromax and Zofran. ASSESSMENT: 1. Resolving acute kidney injury. 2. Severe anemia. 3. Status post acute tubular necrosis. 4. Status post angiogram. 5. Hypertension. 6. Atherosclerotic disease. 7. Hyperlipidemia. PLAN: 1. Repeat hemoglobin, if less than 8 transfuse 2 units of PRBCs. 2. Avoid nephrotoxins. 3. Push p.o. fluids. 4. Continue empiric antibiotics as per ID recommendations. Tamiko Chamberlain MD
[2017-06-03] MEDS: Oxycodone/Acetaminophen 5/325 mg Tab PO PRN ×2 (15:32→22:58)
[2017-06-03] MEDS: Potassium & Sodium Phosphate PO SCH (17:45)
--- NOTE | 2017-06-04 00:17 | PN ---
DATE: 06/03/2017 SUBJECTIVE: The patient is seen sitting in bed. He is awake, he is alert. Family members are at bedside. He denies any pain. He denies any shortness of breath. He denies any abdominal pain. He denies any nausea, vomiting. His right arm pain is much better. PHYSICAL EXAMINATION GENERAL: Elderly male sitting in bed. VITAL SIGNS: Blood pressure 148/93, heart rate 77, respiratory rate 18-20 and temperature 98. HEENT: Normocephalic, atraumatic, positive pallor. NECK: Supple, no JVD. LUNGS: Bilateral equal air entry, distant breath sounds, no rales. CARDIAC: S1 and S2, regular rate and rhythm, no murmur, no rub. ABDOMEN: Obese, distended, soft, nontender, bowel sounds present. EXTREMITIES: No lower extremity edema. LABORATORY DATA: WBC 6.9, hemoglobin 8.1, hematocrit 24 and platelets 220. Sodium 146, potassium 4.1, chloride 112, CO2 of 28, BUN 25, creatinine 1.2, glucose 105, calcium 8.3, phosphorus 1.6 magnesium 2.4, iron saturation of 49, iron 88 and ferritin 278. MEDICATIONS: Ecotrin, Neutra-Phos, Rocephin, TriCor, Tylenol, Z-Jonathan and Zofran. ASSESSMENT: 1. Resolved acute kidney injury. 2. Acute tubular necrosis secondary to contrast exposure. 3. Peripheral arterial disease. 4. Status post angiogram complicated by right arm hematoma. 5. Hypertension. 6. Chronic obstructive pulmonary disease. PLAN 1. Replace phosphorus. 2. Push p.o. intake. 3. Monitor H&H. 4. Continue antihypertensives. 5. No objection to discharge tomorrow Tamiko Chamberlain MD
[2017-06-04 00:55] VITALS: RESP 20
[2017-06-04 06:20] VITALS: O2SAT 94
[2017-06-04 06:48] LABS: BASO # 0.03 K/mm3 (0.0-2.0); BASO % 0.4 % (0.0-3.0); EOS # 0.4 (0.0-0.7); EOS % 4.7 % (1.5-5.0); GRAN # 4.4 (1.4-6.5); GRAN % 58.5 % (50.0-68.0); HEMATOCRIT 24.7 % (42.0-52.0); LYMPH % 26.8 % (22.0-35.0); MEAN CELL VOLUME 99.6 fl (80.0-105.0); MEAN CORPUSCULAR HEMOGLOBIN 33.5 pg (25.0-35.0); MEAN CORPUSCULAR HGB CONC 33.6 g/dl (31.0-37.0); MEAN PLATELET VOLUME 9.5 fl (7.0-11.0); MONO # 0.7 (0.1-0.6); MONO % 9.6 % (1.0-6.0); RED CELL DISTRIBUTION WIDTH 15.9 % (11.5-14.5); WHITE BLOOD COUNT 7.5 10^3/ul (4.5-11.0)
[2017-06-04 07:17] LABS: ALB/GLOB RATIO 1.2 (1.1-1.8); ALKALINE PHOSPHATASE 44 U/L (38-126); ALT/SGPT 50 U/L (7-56); AST/SGOT 48 U/L (17-59); BILIRUBIN,TOTAL 0.8 mg/dL (0.2-1.3); BLOOD UREA NITROGEN 24 mg/dL (7-21); CALCIUM 8.4 mg/dL (8.4-10.5); CARBON DIOXIDE 31 mmol/L (21-33); CHLORIDE 110 mmol/L (98-107); GFR AFRICAN-AMERICAN > 60; GLUCOSE,RANDOM 88 mg/dL (70-110); MAGNESIUM 2.2 mg/dL (1.7-2.2); PHOSPHOROUS 1.9 mg/dL (2.5-4.5); POTASSIUM 3.9 mmol/L (3.6-5.0); SODIUM 144 mmol/L (132-148); TOTAL PROTEIN 5.1 g/dL (5.8-8.3)
[2017-06-04] MEDS: cefTRIAXone 1 gm 1 GM/100 ML BAG IVPB SCH (09:46)
[2017-06-04] MEDS: Potassium & Sodium Phosphate PO SCH (09:47)
[2017-06-04] MEDS: Azithromycin 500MG/NS 250ml 500 MG/250 ML BAG IVPB SCH (11:35)
[2017-06-04 12:13] VITALS: BP 145/51; TEMP 97.2
--- NOTE | 2017-06-04 12:57 | PN ---
SUBJECTIVE: The patient denies chest pain or shortness of breath. PHYSICAL EXAMINATION: VITAL SIGNS: Blood pressure /76, heart rate 61, temperature 98.3 and respirations 20. HEENT: Pale conjunctivae. CHEST: Clear. HEART: S1 and S2 regular. EXTREMITIES: Significant right arm edema and axillary ecchymosis. LABORATORY DATA: Hemoglobin and hematocrit 8.3 and 24.7, white count and platelet count are within normal limit. Today's BUN and creatinine are 24 and 1.1 respectively. Phosphorus is below normal at 1.9. ASSESSMENT: 1. Borderline troponin elevation. 2. Improving renal insufficiency. 3. Status post coronary angioplasty and stenting through the left superficial femoral artery. 4. Right axillary hematoma with residual edema. RECOMMENDATIONS: I did recommend to the nursing staff to remove the IV access from the right arm, to the left arm. Continue current aspirin, IV Rocephin, TriCor and IV Zithromax. Consider venous Doppler of the right upper extremity. Armando Burgos MD
[2017-06-04 16:08] VITALS: PULSE 116
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
== END 2017-06-04 17:01 | DRG 907 ==
LOC: SDSVAS 08:29 → CCU 18:18 → SDSVAS 05-30 12:00 → CCU 05-30 12:00 → 2RNO 06-01 11:13
PROVIDERS: ADMIT Radiology Vascular & Interventional Radiology; ATTEND Radiology Vascular & Interventional Radiology
PROC: 047L3DZ Dilation of Left Femoral Artery with Intraluminal Device, Percutaneous Approach (ICD-10-PCS; principal; 2017-05-29)
DX: I97.638 Postprocedural hematoma of a circulatory system organ or structure following other circulatory system procedure (principal); N17.0 Acute kidney failure with tubular necrosis; J18.9 Pneumonia, unspecified organism; N14.1 Nephropathy induced by other drugs, medicaments and biological substances; T50.8X5A Adverse effect of diagnostic agents, initial encounter; N99.0 Postprocedural (acute) (chronic) kidney failure; I70.222 Atherosclerosis of native arteries of extremities with rest pain, left leg; J44.9 Chronic obstructive pulmonary disease, unspecified; I12.9 Hypertensive chronic kidney disease with stage 1 through stage 4 chronic kidney disease, or unspecified chronic kidney disease; N18.2 Chronic kidney disease, stage 2 (mild); E78.5 Hyperlipidemia, unspecified; D50.0 Iron deficiency anemia secondary to blood loss (chronic); Y83.8 Other surgical procedures as the cause of abnormal reaction of the patient, or of later complication, without mention of misadventure at the time of the procedure; Z87.891 Personal history of nicotine dependence

== ENCOUNTER 2017-06-04 17:07 | Inpatient (IN) | payer OTHER, MEDICAID ==
[2017-06-04] MEDS ORDERED: Oxycodone/Acetaminophen 5/325 mg Tab PO PRN (19:03)
[2017-06-04 20:04] VITALS: BMI 26.5
[2017-06-04] MEDS ORDERED: Influenza Vaccine 60 mcg/0.5 mL SYR (4YR UP) IM ONE (20:04)
[2017-06-04] MEDS ORDERED: Pneumococcal 23-Valent Vaccine IM ONE (20:04)
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
[2017-06-05] MEDS: Pantoprazole 40 mg EC Tab PO SCH (06:40)
[2017-06-05 08:08] LABS: BASO # 0.04 K/mm3 (0.0-2.0); BASO % 0.4 % (0.0-3.0); EOS # 0.4 (0.0-0.7); EOS % 4.3 % (1.5-5.0); GRAN # 5.84 (1.4-6.5); GRAN % 63.1 % (50.0-68.0); HEMATOCRIT 27.2 % (42.0-52.0); LYMPH % 21.7 % (22.0-35.0); MEAN CORPUSCULAR HEMOGLOBIN 34.2 pg (25.0-35.0); MEAN CORPUSCULAR HGB CONC 34.2 g/dl (31.0-37.0); MEAN PLATELET VOLUME 9.5 fl (7.0-11.0); MONO % 10.5 % (1.0-6.0); RED CELL DISTRIBUTION WIDTH 16.1 % (11.5-14.5); WHITE BLOOD COUNT 9.3 10^3/ul (4.5-11.0)
[2017-06-05 08:20] LABS: ALB/GLOB RATIO 1.3 (1.1-1.8); ALKALINE PHOSPHATASE 52 U/L (38-126); ALT/SGPT 74 U/L (7-56); AST/SGOT 48 U/L (17-59); BILIRUBIN,TOTAL 1.1 mg/dL (0.2-1.3); BLOOD UREA NITROGEN 23 mg/dL (7-21); CALCIUM 8.7 mg/dL (8.4-10.5); CARBON DIOXIDE 28 mmol/L (21-33); CHLORIDE 106 mmol/L (98-107); GFR AFRICAN-AMERICAN > 60; GLUCOSE,RANDOM 93 mg/dL (70-110); MAGNESIUM 1.9 mg/dL (1.7-2.2); PHOSPHOROUS 2.1 mg/dL (2.5-4.5); POTASSIUM 3.8 mmol/L (3.6-5.0); SODIUM 141 mmol/L (132-148); TOTAL PROTEIN 5.7 g/dL (5.8-8.3)
[2017-06-05] MEDS ORDERED: Potassium & Sodium Phosphate PO SCH (10:00)
[2017-06-05] MEDS: FENOFIBRATE 150 MG PO SCH (14:53)
--- NOTE | 2017-06-05 18:13 | PN ---
DATE: SUBJECTIVE: The patient is currently seen lying comfortable supine in bed in the TCU. He appears to be in no distress. His BUN and creatinine have returned to baseline levels. MEDICATIONS: Medication list reviewed. The patient is currently on ergocalciferol, Ecotrin, fenofibrate, Percocet p.r.n., Protonix, Tylenol p.r.n., vitamin C, and Zofran p.r.n. OBJECTIVE VITAL SIGNS: Blood pressure ranging from 122-155 systolic, diastolic 60-99. Temperature 98.4, respiratory rate 18 with a pulse of 85. HEENT: Shows him to be normocephalic, atraumatic. Conjunctivae are pale. Sclerae are nonicteric. NECK: Supple. No neck vein distention. CHEST: Clear to auscultation and percussion. No rales, rhonchi, or wheezing. CARDIOVASCULAR: Shows irregular rate and rhythm without murmurs, rubs or gallops. ABDOMEN: Soft. Nondistended. Bowel sounds normal. No rebound or guarding. No masses. EXTREMITIES: Show resolving hematoma, ecchymosis right upper extremity. No lower extremity edema. No cyanosis or clubbing. LABORATORY DATA AND IMAGING: CBC today white blood cell count 9.2 with hemoglobin of 9.3, platelet count is 262,000. Chemistry showed normal electrolytes. BUN down to 23 from a maximum of 55. Creatinine is down to 1.1 from a maximum of 4. His baseline BUN is less than 20 with a baseline creatinine of less than 1.0. Calcium is 8.7. Phosphorus level remains low at 2.1. Magnesium level is 1.9. Mild elevation of his liver enzyme; ALT is 74. Albumin is 3.2. ASSESSMENT: 1. Status post acute renal failure. Secondary to contrast induced nephrotoxicity. With time and hydration, his BUN and creatinine are returning back to normal. 2. Mild hypophosphatemia. We will continue the patient on phosphorus supplements. He had been receiving Neutra-Phos. 3. Mild anemia. This appears to be stable. 4. History of hypertension. Blood pressure control appears to be variable. The patient had been on valsartan in the outpatient setting with improvement in his renal parameters. I will restart the patient on valsartan. 5. History of chronic obstructive pulmonary disease, currently stable. 6. The patient is deconditioned. We will continue rehabilitation in the TCU. PLAN: 1. Continue rehabilitation in the TCU as noted above. 2. We will restart the patient back on blood pressure medication. He had been on valsartan in the outpatient setting. If the patient is unable to obtain this as I do not believe this medication is on formulated dose that he is taking, perhaps we will switch the patient to a formulary designated angiotensin receptor tom. 3. I will supplement the patient with Neutra-Phos. He had been on this in the past. Phosphorus level remains low at 2.1. 4. Continue to monitor labs on a periodic basis in the TCU. Guy Keith MD
[2017-06-05] MEDS: Potassium & Sodium Phosphate PO SCH (18:56)
[2017-06-06 07:56] LABS: MEAN CELL VOLUME 100.3 fl (80.0-105.0); MEAN CORPUSCULAR HEMOGLOBIN 33.4 pg (25.0-35.0); MEAN CORPUSCULAR HGB CONC 33.3 g/dl (31.0-37.0); MEAN PLATELET VOLUME 9.7 fl (7.0-11.0); RED CELL DISTRIBUTION WIDTH 16.4 % (11.5-14.5); WHITE BLOOD COUNT 9.5 10^3/ul (4.5-11.0)
[2017-06-06 08:14] LABS: ALB/GLOB RATIO 1.4 (1.1-1.8); ALKALINE PHOSPHATASE 62 U/L (38-126); ALT/SGPT 80 U/L (7-56); AST/SGOT 52 U/L (17-59); BILIRUBIN,TOTAL 1.6 mg/dL (0.2-1.3); BLOOD UREA NITROGEN 25 mg/dL (7-21); CALCIUM 8.9 mg/dL (8.4-10.5); CARBON DIOXIDE 28 mmol/L (21-33); CHLORIDE 104 mmol/L (95-110); GFR AFRICAN-AMERICAN > 60; GLUCOSE,RANDOM 92 mg/dL (70-110); MAGNESIUM 1.9 mg/dL (1.7-2.2); PHOSPHOROUS 2.6 mg/dL (2.5-4.5); POTASSIUM 3.9 mmol/L (3.6-5.0); SODIUM 140 mmol/L (132-148); TOTAL PROTEIN 6.3 g/dL (5.8-8.3)
[2017-06-06] MEDS: Pantoprazole 40 mg EC Tab PO SCH (08:30)
[2017-06-06] MEDS: FENOFIBRATE 150 MG PO SCH (10:43)
[2017-06-06] MEDS: Potassium & Sodium Phosphate PO SCH ×2 (10:43→17:59)
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
--- NOTE | 2017-06-06 19:44 | US ---
PROCEDURE: Right upper extremity venous US CLINICAL HISTORY: Arm pain and swelling Evaluate for deep venous thrombosis. PHYSICIAN(S): Steve Hernandez M.D FINDINGS: The visualized rightinternal jugular vein is sonographically normal and compressible. No evidence of obstruction or thrombus is seen. The visualized segments of the right subclavian vein are patent with normal waveforms. No sonographic evidence of obstruction or thrombosis is seen. The visualized deep venous system of the proximal right upper extremity is sonographically normal and compressible. There is a 1.8 x 5.7 cm heterogeneous collection in the right axilla, consistent with a hematoma. IMPRESSION: 1. No sonographic evidence for deep venous thrombosis in the visualized segments of the right upper extremity. 2. 0.8 x 5.7 cm right axillary hematoma
[2017-06-07 07:52] LABS: HEMATOCRIT 26.9 % (42.0-52.0); MEAN CELL VOLUME 99.6 fl (80.0-105.0); MEAN CORPUSCULAR HEMOGLOBIN 34.4 pg (25.0-35.0); MEAN CORPUSCULAR HGB CONC 34.6 g/dl (31.0-37.0); MEAN PLATELET VOLUME 9.6 fl (7.0-11.0); WHITE BLOOD COUNT 8.2 10^3/ul (4.5-11.0)
[2017-06-07 08:01] LABS: ALB/GLOB RATIO 1.3 (1.1-1.8); ALKALINE PHOSPHATASE 52 U/L (38-126); ALT/SGPT 62 U/L (7-56); AST/SGOT 44 U/L (17-59); BILIRUBIN,TOTAL 1.2 mg/dL (0.2-1.3); BLOOD UREA NITROGEN 23 mg/dL (7-21); CALCIUM 8.5 mg/dL (8.4-10.5); CARBON DIOXIDE 28 mmol/L (21-33); CHLORIDE 107 mmol/L (98-107); GFR AFRICAN-AMERICAN > 60; GLUCOSE,RANDOM 91 mg/dL (70-110); PHOSPHOROUS 2.7 mg/dL (2.5-4.5); POTASSIUM 3.7 mmol/L (3.6-5.0); SODIUM 141 mmol/L (132-148); TOTAL PROTEIN 5.4 g/dL (5.8-8.3)
[2017-06-07] MEDS: Pantoprazole 40 mg EC Tab PO SCH (09:09)
[2017-06-07] MEDS: Potassium & Sodium Phosphate PO SCH ×2 (09:10→17:44)
[2017-06-07] MEDS ORDERED: Ergocalciferol 50,000 Intl Units Cap PO SCH (10:00)
[2017-06-07] MEDS: FENOFIBRATE 150 MG PO SCH (13:43)
--- NOTE | 2017-06-07 20:02 | PN ---
DATE OF SERVICE: 06/06/2017 SUBJECTIVE: The patient is seen sitting in bed. He is awake, he is alert, he is comfortable. He denies any pain. He denies any shortness of breath. He denies any chest tightness. OBJECTIVE: GENERAL: Elderly male, sitting in bed. VITAL SIGNS: Blood pressure 103/75, heart rate 81, respiratory rate 18, temperature 98.2. HEENT: Normocephalic, atraumatic. NECK: Supple. No JVD. LUNGS: Bilateral equal air entry. No rales. CARDIAC: S1 and S2, regular rate and rhythm. No murmur. No rub. ABDOMEN: Obese, distended, soft, nontender, bowel sounds present. EXTREMITIES: Severe swelling of the right upper extremity, the whole right arm is swollen. INTAKE AND OUTPUT: Not charted. LABORATORY DATA: WBC 9.5, hemoglobin 10, hematocrit 30, platelet count 303. Sodium 140, potassium 3.9, chloride 104, CO2 28, BUN 25, creatinine 1.1, glucose 92, calcium 8.9, phosphorus 2.6, magnesium 1.9. CURRENT MEDICATIONS: Losartan 50, Drisdol, Ecotrin, fenofibrate, Neutra-Phos, Percocet, Protonix, Tylenol. ASSESSMENT: 1. Resolved acute kidney injury. 2. Underlying chronic kidney disease, stage II. 3. Hypertension. 4. Peripheral vascular disease. 5. Right upper extremity hematoma. 6. Increasing swelling of the right upper extremity. PLAN: 1. Right upper extremity venous Doppler. 2. Continue losartan 50 mg daily. 3. Physical therapy 4. Monitor daily labs. Tamiko Chamberlain MD
--- NOTE | 2017-06-08 02:29 | PN ---
DATE: 06/07/2017 SUBJECTIVE: The patient is lying in bed. He is awake, he is alert, he is comfortable. He denies any pain, He denies any shortness of breath. He reports decreased swelling of the right arm. PHYSICAL EXAMINATION GENERAL: An elderly male, lying in bed. VITAL SIGNS: Blood pressure 113/49, heart rate 86, respiratory rate 18, temperature 98.4. HEENT: Normocephalic, atraumatic. NECK: Supple, no JVD LUNGS: Bilateral equal air entry. No rales. CARDIAC: S1 and S2, regular rate and rhythm, no murmur, no rub. ABDOMEN: Obese, distended, soft, nontender. Bowel sounds present. EXTREMITIES: No lower extremity edema. INTAKE AND OUTPUT: Not charted LABORATORY DATA: WBC 8.2, hemoglobin 9.3, hematocrit 27, platelets 288. Sodium 141, potassium 3.7, chloride 107, CO2 of 28, BUN 23, creatinine 1.1, glucose 91, calcium 8.5, phosphorus 2.7, magnesium not checked, total bilirubin 1.2, AST 44, ALT 62. ASSESSMENT: 1. Resolved acute kidney injury. 2. Underlying chronic kidney disease, stage II/III. 3. Hypertension. 4. Coronary artery disease. 5. Right arm hematoma. 6. Anemia. PLAN: 1. Continue antihypertensive. 2. Continue physical therapy. 3. Right upper extremity Doppler shows no DVT. 4. Avoid nephrotoxins. Tamiko Chamberlain MD
[2017-06-08] MEDS: Pantoprazole 40 mg EC Tab PO SCH (05:13)
[2017-06-08 07:57] LABS: MEAN CORPUSCULAR HEMOGLOBIN 34.5 pg (25.0-35.0); MEAN CORPUSCULAR HGB CONC 34.1 g/dl (31.0-37.0); MEAN PLATELET VOLUME 9.4 fl (7.0-11.0); RED CELL DISTRIBUTION WIDTH 17.6 % (11.5-14.5); WHITE BLOOD COUNT 8.9 10^3/ul (4.5-11.0)
[2017-06-08 08:04] LABS: ALB/GLOB RATIO 1.4 (1.1-1.8); ALKALINE PHOSPHATASE 58 U/L (38-126); ALT/SGPT 61 U/L (7-56); AST/SGOT 41 U/L (17-59); BILIRUBIN,TOTAL 1.4 mg/dL (0.2-1.3); BLOOD UREA NITROGEN 25 mg/dL (7-21); CALCIUM 8.7 mg/dL (8.4-10.5); CARBON DIOXIDE 24 mmol/L (21-33); CHLORIDE 107 mmol/L (98-107); GFR AFRICAN-AMERICAN > 60; GLUCOSE,RANDOM 107 mg/dL (70-110); PHOSPHOROUS 3.2 mg/dL (2.5-4.5); SODIUM 139 mmol/L (132-148); TOTAL PROTEIN 5.8 g/dL (5.8-8.3)
[2017-06-08] MEDS: Potassium & Sodium Phosphate PO SCH ×2 (09:27→18:17)
[2017-06-08] MEDS: FENOFIBRATE 150 MG PO SCH (09:27)
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
[2017-06-09] MEDS: Pantoprazole 40 mg EC Tab PO SCH (05:09)
[2017-06-09] MEDS: Potassium & Sodium Phosphate PO SCH ×2 (09:07→17:57)
--- NOTE | 2017-06-09 09:27 | PN ---
SUBJECTIVE: The patient is seen lying supine in the TCU in bed, he is entirely comfortable, no ongoing acute issues. The patient continues to do rehabilitation in the TCU. BUN and creatinine are down to 25 and 1.2, which are at or near his baseline levels. MEDICATIONS: Medication list reviewed. The patient is currently on losartan, vitamin D, Ecotrin, fenofibrate, Neutra-Phos, Protonix, Tylenol, vitamin C and Zofran p.r.n. OBJECTIVE: VITAL SIGNS: Blood pressure 148/90, temperature 98.1, respiratory rate 18 with a pulse of 75. HEENT EXAM: Shows him to be normocephalic and atraumatic. Conjunctivae remain pale. Sclerae nonicteric. NECK: Supple. No neck vein distention. CHEST: Clear to auscultation and percussion. No rales, no rhonchi, no wheezing. CARDIOVASCULAR: Shows an irregular rate and rhythm without murmurs, rubs or gallops. ABDOMEN: Soft. Nondistended. Bowel sounds are normal. No rebound, guarding or masses. EXTREMITIES: Show resolving hematoma, ecchymotic area of right upper extremity. No lower extremity edema. No cyanosis or clubbing. LABORATORY DATA AND IMAGING: Labs from yesterday showed a white blood cell count of 8.9; hemoglobin 9.9, which is stable; platelet count is 294,000. Chemistry showed normal electrolytes. BUN is 25 with a creatinine of 1.2, which are slightly above his baseline levels. Glucose 107. Calcium and phosphorus are normal. Last magnesium level was 1.9. Slight elevation of his ALT of 61 with a bilirubin of 1.4. Albumin is 3.4. ASSESSMENT: 1. Status post acute renal failure. This was thought to be secondary to contrast-induced nephrotoxicity. With appropriate hydration and time, his BUN and creatinine have drifted back to the normal range. 2. Status post mild hypophosphatemia. The patient continues on Neutra-Phos. 3. Mild anemia, this is stable. Hemoglobin is in the 9.9 range. 4. History of hypertension. Blood pressure control appears to be at the upper range of acceptability. The patient will continue losartan in the outpatient setting. He was on valsartan. Upon discharge, the patient may return to using valsartan. 5. History of chronic obstructive pulmonary disease, currently stable. 6. Deconditioning. The patient will continue rehabilitation in the TCU. PLAN: 1. Continue rehabilitation in the TCU. 2. I will increase losartan to 100 mg a day in light of his diastolic blood pressures in the low 90 range. 3. For right now, the patient may continue Neutra-Phos. We will check phosphorus level prior to discharge, and if phosphorus level remains normal, Neutra-Phos can be discontinued. Guy Keith MD
[2017-06-09] MEDS: FENOFIBRATE 150 MG PO SCH (10:50)
[2017-06-10] MEDS: Pantoprazole 40 mg EC Tab PO SCH (06:13)
[2017-06-10] MEDS: Potassium & Sodium Phosphate PO SCH ×2 (11:01→18:07)
[2017-06-10] MEDS: FENOFIBRATE 150 MG PO SCH (11:01)
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
--- NOTE | 2017-06-10 11:59 | PN ---
SUBJECTIVE: The patient is currently seen in the TCU sitting up in bed. He appears to be in no acute distress. The patient continues rehabilitation in the TCU. MEDICATIONS: Medication list reviewed. The patient is currently on losartan, ergocalciferol, Ecotrin, fenofibrate, Neutra-Phos, Protonix, Tylenol p.r.n., vitamin C and Zofran p.r.n. OBJECTIVE: VITAL SIGNS: Blood pressure improved to 138/83, temperature 98.4, respiratory rate 20 with a pulse of 76. HEENT EXAM: Normocephalic and atraumatic. Conjunctivae are pale. Sclerae nonicteric. NECK: Supple. No neck vein distention. CHEST: Clear to auscultation and percussion. No rales. No rhonchi. No wheezing. CARDIOVASCULAR: Shows a regular rate and rhythm without murmurs, rubs or gallops. ABDOMEN: Soft. Nondistended. Bowel sounds normal. No rebound. No guarding. No masses. EXTREMITIES: Show no lower extremity cyanosis, clubbing or edema. LABORATORY DATA AND IMAGING: No recent labs were done. The patient is scheduled for laboratory work tomorrow. His last BUN was 25 with a creatinine of 1.2, which are at his best levels since admission. ASSESSMENT: 1. Status post acute renal failure. This was thought to be secondary to contrast-induced nephrotoxicity. With hydration, the patient's BUN and creatinine have drifted back to the normal range. 2. Status post mild hypophosphatemia. The patient's last phosphorus level was 3.2. He continues on Neutra-Phos. 3. History of mild anemia. Hemoglobin is stable in the 9 to 10 range. 4. Hypertension. Blood pressure control is improved on losartan 100 mg a day. In the outpatient setting, the patient had been on valsartan and upon discharge, the patient may switch back to losartan. 5. History of chronic obstructive pulmonary disease, currently stable. 6. Deconditioning. The patient will continue rehabilitation in the TCU. PLAN: 1. Continue higher dose of losartan 100 mg a day, continue to monitor blood pressures. 2. Right now, the patient may continue Neutra-Phos. We will check the phosphorus level tomorrow and determine whether or not will require this medication upon discharge. 3. Continue rehabilitation in the TCU. 4. Further recommendations pending tomorrow's labs. Guy Keith MD
[2017-06-11] MEDS: Pantoprazole 40 mg EC Tab PO SCH (05:11)
[2017-06-11 07:07] LABS: HEMATOCRIT 31.6 % (42.0-52.0); MEAN CELL VOLUME 102.3 fl (80.0-105.0); MEAN CORPUSCULAR HEMOGLOBIN 34.6 pg (25.0-35.0); MEAN CORPUSCULAR HGB CONC 33.9 g/dl (31.0-37.0); MEAN PLATELET VOLUME 9.4 fl (7.0-11.0); RED CELL DISTRIBUTION WIDTH 18.6 % (11.5-14.5); WHITE BLOOD COUNT 7.7 10^3/ul (4.5-11.0)
[2017-06-11 07:23] LABS: ALB/GLOB RATIO 1.4 (1.1-1.8); BILIRUBIN,TOTAL 1.5 mg/dL (0.2-1.3); CALCIUM 9.4 mg/dL (8.4-10.5); PHOSPHOROUS 3.7 mg/dL (2.5-4.5); POTASSIUM 4.2 mmol/L (3.6-5.0); TOTAL PROTEIN 6.6 g/dL (5.8-8.3)
[2017-06-11] MEDS: Potassium & Sodium Phosphate PO SCH ×2 (09:49→17:10)
[2017-06-11] MEDS: FENOFIBRATE 150 MG PO SCH (09:50)
--- NOTE | 2017-06-11 20:41 | PN ---
DATE: 06/11/2017 SUBJECTIVE: The patient is still sitting in chair. He is awake, he is alert, he is comfortable. He denies any headaches or dizziness. He denies any chest pain or palpitations. He denies any abdominal pain, nausea, or vomiting. PHYSICAL EXAMINATION: GENERAL: Elderly male, sitting in chair. VITAL SIGNS: Blood pressure 144/77, heart rate 85, respiratory rate 20 and temperature 98. HEENT: Normocephalic, atraumatic. NECK: Supple, no JVD. LUNGS: Bilateral equal air entry, no rales. CARDIAC: S1 and S2, regular rate and rhythm, no murmur, no rub. ABDOMEN: Obese, distended, soft, nontender, bowel sounds present. EXTREMITIES: No lower extremity edema. INTAKE AND OUTPUT: 460/600? LABORATORY DATA: WBC 7.7, hemoglobin 10.7, hematocrit 32 and platelet 358. Sodium 139, potassium 4.2, chloride 104, CO2 of 26, BUN 26, creatinine 1.5, glucose 93, calcium 9.4, phosphorus 3.7, and magnesium 2.0. CURRENT MEDICATIONS: Losartan 100 mg daily started on 06/09, Drisdol, Ecotrin, fenofibrate, potassium phosphate, Protonix, Tylenol, Zofran. ASSESSMENT AND PLAN: 1. Acute kidney injury, superimposed on chronic kidney disease stage II. 2. Hypertension. 3. Resolved acute kidney injury/acute tubular necrosis secondary to contrast. 4. Resolved hematoma, right upper extremity. 5. Anemia. 6. Peripheral vascular disease. PLAN: 1. Suspect creatinine has gone up because of the starting of the ARB. We will continue ARB if creatinine remains stable at 1.5. 2. Check BNP tomorrow. 3. Discussed with the patient close outpatient followup if required. 4. Continue current management and physical therapy. Tamiko Chamberlain MD
[2017-06-12] MEDS: Pantoprazole 40 mg EC Tab PO SCH (06:35)
[2017-06-12] MEDS: FENOFIBRATE 150 MG PO SCH (09:07)
[2017-06-12] MEDS: Potassium & Sodium Phosphate PO SCH (09:08)
[2017-06-12 10:11] VITALS: BP 110/80; PULSE 96; RESP 18; TEMP 98.3; O2SAT 95
[2017-06-12 10:18] LABS: BASO # 0.02 K/mm3 (0.0-2.0); BASO % 0.2 % (0.0-3.0); EOS # 0.2 (0.0-0.7); EOS % 1.7 % (1.5-5.0); GRAN # 6.33 (1.4-6.5); GRAN % 70.7 % (50.0-68.0); HEMATOCRIT 31.1 % (42.0-52.0); LYMPH # 1.6 (1.2-3.4); LYMPH % 17.8 % (22.0-35.0); MEAN CELL VOLUME 102.6 fl (80.0-105.0); MEAN CORPUSCULAR HEMOGLOBIN 34.7 pg (25.0-35.0); MEAN CORPUSCULAR HGB CONC 33.8 g/dl (31.0-37.0); MEAN PLATELET VOLUME 9.1 fl (7.0-11.0); MONO # 0.9 (0.1-0.6); MONO % 9.6 % (1.0-6.0); RED CELL DISTRIBUTION WIDTH 18.6 % (11.5-14.5)
[2017-06-12 11:20] LABS: ALB/GLOB RATIO 1.3 (1.1-1.8); ALKALINE PHOSPHATASE 74 U/L (38-126); ALT/SGPT 39 U/L (7-56); AST/SGOT 101 U/L (17-59); BILIRUBIN,TOTAL 1.4 mg/dL (0.2-1.3); BLOOD UREA NITROGEN 25 mg/dL (7-21); CALCIUM 9.6 mg/dL (8.4-10.5); CARBON DIOXIDE 25 mmol/L (21-33); CHLORIDE 105 mmol/L (98-107); GFR AFRICAN-AMERICAN > 60; GLUCOSE,RANDOM 130 mg/dL (70-110); POTASSIUM 4.2 mmol/L (3.6-5.0); SODIUM 140 mmol/L (132-148); TOTAL PROTEIN 6.8 g/dL (5.8-8.3)
--- NOTE | 2017-06-12 14:41 | PN ---
DATE: SUBJECTIVE: The patient is currently seen sitting up in bed. He is anticipating being discharged later today from the TCU. MEDICATIONS: Medication list reviewed. The patient is on losartan, vitamin D, Ecotrin, fenofibrate, Neutra-Phos, Protonix, Tylenol, vitamin C and Zofran p.r.n. OBJECTIVE: VITAL SIGNS: Blood pressure is improved at 110/80. Temperature 98.3, respiratory rate 18 with a pulse of 96. HEENT: Exam shows him to be normocephalic, atraumatic. Conjunctivae are pale. Sclerae nonicteric. NECK: Supple. No neck vein distention. CHEST: Clear to auscultation and percussion. No rales, rhonchi or wheezing. CARDIOVASCULAR: Regular rate and rhythm without murmurs, rubs or gallops. ABDOMEN: Soft. Nondistended. Bowel sounds normal. No rebound, no guarding, no masses. EXTREMITIES: Show no lower extremity cyanosis, clubbing or edema. LABORATORY DATA AND IMAGING: CBC today: White blood cell count 9, hemoglobin stable at 10.5, platelet count is 355,000. Chemistry showed normal electrolytes. BUN 25 with a creatinine of 1.4. Glucose is 130. Calcium 9.6 with a phosphorus of 4.0. Bilirubin 1.4. Mild elevation of his AST at 101. ASSESSMENT: 1. Status post acute renal failure. This was thought to be secondary to contrast induced nephrotoxicity with appropriate hydration. BUN and creatinine have drifted back to the normal range. 2. Status post mild hypophosphatemia. The patient's last phosphorus level was 4.0 with a calcium of 9.6, magnesium level of 2.0. The patient is currently on Neutra-Phos. This could likely be discontinued upon discharge as long as the patient increases dietary foods that are rich in phosphorus. 3. History of mild anemia. Hemoglobin stable in the 10-11 range. 4. History of hypertension. Blood pressure is improved on losartan 100 mg a day. From my standpoint, the patient may be transferred back to valsartan, perhaps 80 mg a day upon discharge. 5. History of chronic obstructive pulmonary disease, currently stable. 6. History of deconditioning. The patient had benefited from rehabilitation in the transitional care unit. PLAN: 1. Tentative discharge later today. Again, from my standpoint, Neutra-Phos may be discontinued. 2. The patient may be switched back to valsartan, perhaps 80 mg a day instead of losartan 100 mg a day which he had been receiving in the inpatient setting. 3. The patient should follow up with his primary care physician for further laboratory determination in the next month in the outpatient setting. Guy Keith MD
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
== END 2017-06-12 16:36 | disposition home or self-care (01) | DRG 945 ==
LOC: TRCU 17:07
PROVIDERS: ADMIT Internal Medicine; ATTEND Internal Medicine
PROC: F07Z9FZ Gait Training/Functional Ambulation Treatment using Assistive, Adaptive, Supportive or Protective Equipment (ICD-10-PCS; principal; 2017-06-06)
PROC: F07Z8ZZ Transfer Training Treatment (ICD-10-PCS; 2017-06-06)
PROC: F07L6YZ Therapeutic Exercise Treatment of Musculoskeletal System - Lower Back / Lower Extremity using Other Equipment (ICD-10-PCS; 2017-06-06)
PROC: F07Z5ZZ Bed Mobility Treatment (ICD-10-PCS; 2017-06-07)
PROC: F08Z0FZ Bathing/Showering Techniques Treatment using Assistive, Adaptive, Supportive or Protective Equipment (ICD-10-PCS; 2017-06-11)
PROC: F08Z1FZ Dressing Techniques Treatment using Assistive, Adaptive, Supportive or Protective Equipment (ICD-10-PCS; 2017-06-11)
PROC: F08Z2FZ Grooming/Personal Hygiene Treatment using Assistive, Adaptive, Supportive or Protective Equipment (ICD-10-PCS; 2017-06-11)
DX: R53.1 Weakness (principal); I97.638 Postprocedural hematoma of a circulatory system organ or structure following other circulatory system procedure; J18.9 Pneumonia, unspecified organism; J44.9 Chronic obstructive pulmonary disease, unspecified; E88.09 Other disorders of plasma-protein metabolism, not elsewhere classified; E83.39 Other disorders of phosphorus metabolism; N18.3 Chronic kidney disease, stage 3 (moderate); R26.2 Difficulty in walking, not elsewhere classified; I73.9 Peripheral vascular disease, unspecified; I12.9 Hypertensive chronic kidney disease with stage 1 through stage 4 chronic kidney disease, or unspecified chronic kidney disease; E78.5 Hyperlipidemia, unspecified; Y83.8 Other surgical procedures as the cause of abnormal reaction of the patient, or of later complication, without mention of misadventure at the time of the procedure; D64.9 Anemia, unspecified; I25.10 Atherosclerotic heart disease of native coronary artery without angina pectoris; G62.9 Polyneuropathy, unspecified; R20.2 Paresthesia of skin; Z95.820 Peripheral vascular angioplasty status with implants and grafts; Z87.891 Personal history of nicotine dependence